=== PATIENT | female | born 1990 | race Caucasian/White ===

== ENCOUNTER → 2020-06-19 | Outpatient (CLI) | payer BC | LOC: COL.RAD 09:27 | DX: H53.9 Unspecified visual disturbance (principal) ==

== ENCOUNTER 2022-05-14 23:49 | Emergency (ER) | payer OTHER ==
[~2022-05-14] VITALS: Ht 167.6 cm; Wt 86.4 kg
[2022-05-14 23:52] VITALS: BP 1252/77; TEMP 97.9
[2022-05-14] MEDS ORDERED: WELLBUTRIN XL300 M1 PO (23:55)
[2022-05-14] MEDS ORDERED: TOPROL XL 25MG25 MG PO (23:55)
[2022-05-14] MEDS ORDERED: STRATTERA 40MG40 MG PO (23:55)
[2022-05-15 00:53] VITALS: PULSE 87
== END 2022-05-15 00:53 | disposition home or self-care (01) ==
LOC: COL.ER 23:49
DX: S63.501A Unspecified sprain of right wrist, initial encounter (principal); X50.0XXA Overexertion from strenuous movement or load, initial encounter; Y93.F2 Activity, caregiving, lifting